=== PATIENT | male | born 1980 | race Hispanic/Latino ===

== ENCOUNTER 2024-07-13 05:48 | Day surgery (SDC) | payer OTHER ==
[2024-07-11 10:29] LABS: BASOPHILS # (AUTO) 0.05 K/uL (0.00-0.20); BASOPHILS % (AUTO) 0.7 % (0.0-5.0); EOSINOPHILS % (AUTO) 5.4 % (0.0-8.0); HEMATOCRIT 40.7 % (42-54); IMMATURE GRANULOCYTE ABSOLUTE 0.02 K/uL (0-1); LYMPHOCYTES % (AUTO) 40.4 % (21.0-51.0); MEAN CORPUSCULAR HEMOGLOBIN 29.6 pg (27.0-33.0); MEAN CORPUSCULAR HGB CONC 33.4 g/dL (32.0-36.0); MEAN CORPUSCULAR VOLUME 88.7 fL (79-99); MONOCYTES # (AUTO) 0.6 K/uL (0.1-1.0); MONOCYTES % (AUTO) 8.4 % (3.0-13.0); NEUTROPHILS # (AUTO) 3.3 K/uL (1.8-7.7); NEUTROPHILS % (AUTO) 44.8 % (40.0-77.0); PLATELET COUNT (AUTO) 264 K/uL (130-400); RED BLOOD CELL COUNT(AUTO) 4.59 MIL/uL (4.50-6.20); RED CELL DISTRIBUTION WIDTH 13.7 % (11.0-15.5); WHITE BLOOD COUNT (AUTO) 7.4 K/uL (4.8-10.8)
[2024-07-11 10:36] LABS: INR 0.97 (0.85-1.15); PROTHROMBIN TIME 10.3 SEC (9.6-11.6)
[2024-07-11 10:37] LABS: ALBUMIN 3.5 g/dL (3.5-5.0); CREATININE 1.1 mg/dL (0.5-1.3); PARTIAL THROMBOPLASTIN TIME 28.5 SEC (26.3-35.5); POTASSIUM 3.9 mmol/L (3.5-5.1)
[2024-07-11 11:19] VITALS: BP 114/68; PULSE 70; RESP 18; TEMP 97.9
[~2024-07-13] VITALS: Ht 185.4 cm; Wt 122.8 kg
[2024-07-13] VITALS (13 sets, daily range): BP systolic 104–131; BP diastolic 58–84; PULSE 55–71; RESP 15–18; TEMP 97.4–97.6
[~2024-07-13 05:48] MED LIST: CLON0.1T PO; OXYC10TA48 PO
[2024-07-13] MEDS: ceFAZolin SODIUM 2 GM VIAL ONE (06:33)
[2024-07-13] MEDS: LACTATED RINGERS 1000ML 1,000 ML IV ONE (06:33)
[2024-07-13] MEDS: ceFAZolin SODIUM 1 GM VIAL ONE (06:33)
[2024-07-13] MEDS ORDERED: acetaMINOPHEN 100 ML ONE (06:38)
[2024-07-13] MEDS ORDERED: FAMOTIDINE 20MG VIAL IV ONE (06:38)
[2024-07-13] MEDS ORDERED: ROPivacaine 0.5% 5MG/ML 30ML ONE (06:41)
[2024-07-13] MEDS ORDERED: ketaMINE 50MG/ML SYRINGE 50 MG/ML DISP.SYRIN ONE (06:42)
[2024-07-13] MEDS ORDERED: proPOFol 10 MG/ML 20ML VIAL IV ONE (06:50)
[2024-07-13] MEDS ORDERED: LIDOCAINE PF 100MG/5ML (2%) SYRINGE 5ML ONE (06:50)
[2024-07-13] MEDS ORDERED: FENTanyl CITRate PF 50 MCG/1 ML 2ML VIAL ONE (06:51)
[2024-07-13] MEDS ORDERED: rocuRONium bROMide 10MG/1ML 5ML VL ONE (06:51)
[2024-07-13] MEDS ORDERED: dexmedeTOMIDine HCL 200 MCG/2 ML VIAL IV ONE (06:54)
[2024-07-13] MEDS ORDERED: MIDAZOLAM HCL 1 MG/ML 2ML VIAL ONE (07:04)
[2024-07-13] MEDS ORDERED: ondanSETRON 4MG INJ ONE (07:49)
[2024-07-13] MEDS ORDERED: dexaMETHasone SOD PHOSPHATE 10MG/ML 1ML VIAL ONE (07:49)
[2024-07-13] MEDS: EPINEPHrine 1 MG/ML 30ML VIAL IJ ONE (08:32)
[2024-07-13] MEDS ORDERED: GLYCOPYRROLATE 0.2 MG/ML 5 ML VIAL ONE (08:49)
[2024-07-13] MEDS ORDERED: NEOSTIGMINE METHYLSULFATE 1MG/ML IV ONE (08:49)
--- NOTE | 2024-07-13 12:05 | OP ---
Operative Note: DATE OF PROCEDURE: 07/13/24 SURGEON: TUYET ATWOOD MD MEDICAL ASSISTANT PRN: Ellen Chiang ANESTHESIA: General and interscalene block ANESTHESIOLOGIST/PSYCHIATRIC AIDE: Vita Eduardo PREOPERATIVE DIAGNOSIS: Left shoulder labral tearing, subacromial impingement, acromioclavicular joint osteoarthritis POSTOPERATIVE DIAGNOSIS: Left shoulder labral tearing, subacromial impingement, acromioclavicular joint osteoarthritis PROCEDURE: Left shoulder arthroscopic labral debridement, subacromial decompression, distal clavicle excision ESTIMATED BLOOD LOSS: 10 cc FINDINGS: On insertion of the arthroscope we noted healthy-appearing articular cartilage of the humeral head and glenoid. There was some mild degenerative fraying of the labrum. Long head of the biceps attachment appeared intact and healthy. The subscapularis appeared intact as did the supra and infraspinatus tendons at their insertion site. We debrided a little bit of the labrum. The subacromial space we resected the distal clavicle and lateral acromial spurs. INDICATIONS: 44-year-old male with a history of left shoulder pain. They were failing conservative management and found on MRI to have bony prominence of the acromion and acromioclavicular joint both causing mass effect on the rotator cuff. Clinically the findings consistent with labral tearing, subacromial impingement, and acromioclavicular joint arthritis. After discussion of the risk, benefits, and alternatives, the patient voluntarily agreed to undergo the aforementioned procedure. DESCRIPTION OF PROCEDURE: Patient was properly identified in the preoperative holding area. Surgical site marking was verified and surgery consent reviewed. The patient was then taken to the operating room and placed in supine position on the OR table. After induction of general anesthesia, preoperative antibiotics were given, all bony prominences were well-padded as the patient was transitioned into beachchair position. The left upper extremity was then prepped and draped in usual sterile fashion. Surgical timeout was done verifying correct surgery, side, site, and location to be performed. We then began the procedure by using an 18-gauge spinal needle to inject the shoulder joint with normal saline to distend the joint capsule. A posterior lateral portal was established using 11 blade and we inserted our arthroscope through this portal. We established an anterior portal using needle localization under direct visualization and placed a working cannula through this portal. We then performed a diagnostic arthroscopy with the aforementioned findings. We then evaluated the tear of the labrum that appeared to mostly be degenerative in nature. We debrided the labral tissue back to a stable leading edge. We then repositioned the arthroscope and made a lateral working portal into the subacromial space. Here using a combination of the shaver device and electr ocautery we performed our subacromial decompression excising the bursal tissue. We were then able to identify the acromioclavicular joint. Inferiorly projecting lateral acromial spurs were removed using the bur with a proximally 2 mm of the undersurface of the acromion resected as well. We then focused our attention on the acromioclavicular joint where we resected any inferiorly projecting bony prominences as well as the laterally mm of the distal clavicle. We then removed as much of the arthroscopic fluid as possible and removed the arthroscopic instruments and camera. We expressed some the remaining fluid from the surrounding soft tissues. 3-0 nylon was then used to close the skin portals. Sterile soft dressing was applied. Patient was then placed into a shoulder immobilizer, awakened from anesthesia, and taken the recovery room in stable condition. TUYET ATWOOD MD Jul 13, 2024 12:05
== END 2024-07-13 10:50 | disposition home or self-care (01) ==
LOC: DAH 05:48
PROVIDERS: ATTEND Student in an Organized Health Care Education/Training Program
DX: M19.012 Primary osteoarthritis, left shoulder (principal); G89.29 Other chronic pain; M75.42 Impingement syndrome of left shoulder; M24.112 Other articular cartilage disorders, left shoulder; M25.511 Pain in right shoulder; F41.9 Anxiety disorder, unspecified; F32.A Depression, unspecified; M19.90 Unspecified osteoarthritis, unspecified site; F43.10 Post-traumatic stress disorder, unspecified; Z79.01 Long term (current) use of anticoagulants; Z88.5 Allergy status to narcotic agent; Z79.899 Other long term (current) drug therapy
CPT/HCPCS: 82040; 80048; 85025; 85610; 85730; 84134; 86140; 36415; 29824; 64415; 29826; A4663; J7030; J7120; J3490 ×5; J3010; J0690 ×2; J1100; J0171; J2003; J2250; J2704; J2405; J2710; J2795; A6223; A4930; A4649; A5120; A4215; A4223; A4222; A4221; A4600